=== PATIENT | female | born 1995 | race American Indian/Alaskan Native ===

== ENCOUNTER 2017-06-09 09:42 | Emergency (ER) | payer SELFPAY ==
[2017-06-09 10:13] VITALS: BP 114/70
[2017-06-09 10:35] LABS: Basophils % (Auto) 0.5 % (0.0-1.8); Eosinophils % (Auto) 3.3 % (0.0-4.3); Hematocrit 36.7 % (30.3-42.9); Hemoglobin 11.5 gm/dl (10.1-14.3); Mean Corpuscular HGB Conc 31 % (30-34); Mean Corpuscular Volume 71 fl (79-97); Platelet Count 232 K/mm3 (140-440); Red Blood Count 5.16 M/mm3 (3.65-5.03)
[2017-06-09 10:37] LABS: Mean Corpuscular Hemoglobin 22 pg (28-32)
[2017-06-09 10:53] LABS: Anion Gap 18 mmol/L; BUN/Creatinine Ratio 18.33; Blood Urea Nitrogen 11 mg/dL (7-17); Calcium 8.7 mg/dL (8.4-10.2); Carbon Dioxide 25 mmol/L (22-30); Chloride 107.6 mmol/L (98-107); Glucose 81 mg/dL (65-100); Potassium 4.5 mmol/L (3.6-5.0); Sodium 146 mmol/L (137-145)
== END 2017-06-09 10:22 | disposition left against medical advice (07) ==
LOC: ED 09:42
DX: R20.0 Anesthesia of skin (principal); Z53.21 Procedure and treatment not carried out due to patient leaving prior to being seen by health care provider
CPT/HCPCS: 36415; 80048; 84484; 84703; 85025; 93005; 93010